=== PATIENT | female | born 1985 | race Caucasian/White ===

== ENCOUNTER 2018-07-22 13:51 | Emergency (ER) | payer MEDICAID ==
[~2018-07-22] VITALS: Ht 165.1 cm; Wt 68.0 kg
[2018-07-22] MEDS ORDERED: HYDROCODONE/ACETAMINOPHEN 5/325MG TABLET PO ONE (15:30)
[2018-07-22 17:28] LABS: CHLORIDE 104 mEq/L (98-107)
[2018-07-22 17:34] LABS: BASOPHILS % 0.2 % (0.0-2.0); EOSINOPHILS % 0.5 % (0.0-5.0); HEMATOCRIT. 29.9 % (36.0-48.0); HEMOGLOBIN. 10.5 g/dL (12.0-16.0); LYMPHOCYTES % 16.7 % (20.0-50.0); MEAN CORPUSCULAR HEMOGLOBIN 31.1 pg (28.0-32.0); MEAN CORPUSCULAR VOLUME 88.3 fL (81.0-99.0); MEAN PLATELET VOLUME 7.3 fl (7.4-10.4); MONOCYTES % 9.4 % (2.0-8.0); NEUTROPHILS % 73.2 % (40.0-76.0); PLATELET 343 x1000/uL (130-400); RED BLOOD CELL COUNT 3.38 mill/uL (4.2-5.4); RED CELL DISTRIBUTION WIDTH 11.1 % (11.6-14.6)
[2018-07-22 17:44] LABS: T4 FREE 3.09 ng/dL (0.76-1.46)
[2018-07-22] MEDS ORDERED: IOHEXOL-350 100 ML BOTTLE ONE (19:10)
[2018-07-22 20:30] VITALS: BP 118/79
== END 2018-07-22 20:30 | disposition home or self-care (01) ==
LOC: ER 13:51
DX: E04.1 Nontoxic single thyroid nodule (principal); M54.2 Cervicalgia; F12.10 Cannabis abuse, uncomplicated; Z91.018 Allergy to other foods; M06.9 Rheumatoid arthritis, unspecified; R51 Headache
CPT/HCPCS: 36415; 70498; 76536; 80053; 81025; 84439; 84443; 84481; 85025; 93005; 99285; Q9967; J7030